=== PATIENT | male | born 1950 | race Caucasian/White ===

== ENCOUNTER 2017-06-13 11:05 | Inpatient (IN) ==
[2017-06-13 11:49] LABS: Basophils % 0.4 %; Eosinophils % 0.4 %; Hematocrit 37.4 % (37.5-50.1); Hemoglobin 11.4 g/dL (12.9-16.9); Immature Granulocytes % 0.6 % (0-4); Lymphocytes # 0.5 K/mcL (0.6-4.6); Lymphocytes % 6.5 %; Mean Corpuscular HGB Conc 30.5 g/dL (31.6-35.5); Mean Corpuscular Hemoglobin 27.5 pg (28.0-33.3); Mean Corpuscular Volume 90.1 fL (83.0-100.0); Mean Platelet Volume 10.4 fL (9.4-12.4); Monocytes # 0.8 K/mcL (0.0-1.3); Monocytes % 10.2 %; Neutrophils # 6.5 K/mcL (1.6-8.9); Platelet Count 113 K/mcL (140-400); Red Blood Count 4.15 M/mcL (4.19-5.50); Red Cell Distribution Width 21.1 % (11.5-14.5); Segmented Neutrophils % 81.9 %
[2017-06-13 11:55] LABS: INR 1.3
[2017-06-13 12:05] LABS: BUN/Creatinine Ratio 19 (6-26); Blood Urea Nitrogen 16 mg/dL (8-26); Calcium 8.9 mg/dL (8.6-10.8); Carbon Dioxide 39 mEq/L (19-29); Chloride 90 mEq/L (98-109); Glucose 189 mg/dL (70-99); Osmolality,Calculated 294 (280-300); Potassium 3.4 mEq/L (3.5-4.5); Sodium 139 mEq/L (136-145); eGFR For African Americans > 60 (> 60); eGFR For Non-African Americans > 60 (> 60)
--- NOTE | 2017-06-13 12:31 | Emergency Department Note ---
Disposition Clinical Impression: Palpitations, Atrial fibrillation, Atrial fibrillation with RVR, Diabetes, CKD (chronic kidney disease) stage 3, GFR 30-59 ml/min Disposition: Admitted As Inpatient Time of Disposition: 16:11 ([facility] Bryce Ric) Arrhythmia/Palpitations HPI - General Chief Complaint: ED Arrhythmia/Palpitations Stated Complaint: chronic afibb Time Seen by Provider: 06/13/17 11:12 Source: patient, EMS Mode of arrival: ambulatory Limitations: no limitations Nursing Notes Reviewed: Yes Vital Signs Reviewed: Yes - History of Present Illness HPI Narrative: Pt was at his family physician's office today when they sent to the emergency room for atrial flutter with RVR patient states that he has been doing this for at least a couple days probably couple weeks she has been having problems for the past month of increasing shortness of breath difficulty breathing he has had lab he has had blood work he denies any blurred vision double vision he thought he denies any syncope he denies any numbness tingling or weakness denies any rashes or lesions he has had changes His called them and actually tells us that he had nosebleed yesterday he has had breathing issues he is not watching his fluid intake this is been going on for more than a month in addition he has not been checking his blood sugar unclear when he may have checked labs and finally that he has not been taking his meds since Friday and thinks this congealing factor to what is going on as result patient's feels that he has been an ongoing issue of not clients which is contributing to the events today Pt Subjective Complaint: palpitations Onset (ago): day(s) (4) Duration: constant Severity: moderate Context: occurred during rest, occurred during exertion Arrhythmia History: atrial fibrillation, on anti-coagulants Associated symptoms: Reports: shortness of breath, near-syncope. Denies: syncope, nausea, vomiting, anxiety, diaphoresis, cough, paresthesias, muscle cramps Treatments prior to arrival: other (has not taken medications) - Related Data Home Medications Medication Instructions Recorded Confirmed Albuterol Neb [Proventil Neb] 2.5 mg IH TID 06/29/15 06/13/17 Albuterol Sulfate [Albuterol 1 - 2 puff IH Q4HR 06/29/15 06/13/17 Inhaler] Aspirin/Calcium Carbonate/Mag 325 mg PO DAILY 06/29/15 06/13/17 [Aspirin Buffered 325 mg Tab] Atorvastatin Calcium [Lipitor] 80 mg PO DAILY 06/29/15 06/13/17 Fluticasone Propionate Nasal 100 mcg NS DAILY 06/29/15 06/13/17 [Flonase] Loratadine [Claritin] 10 mg PO DAILY 06/29/15 06/13/17 Metformin [Glucophage] 1,000 mg PO BID 06/29/15 06/13/17 Montelukast [Singulair] 10 mg PO DAILY 06/29/15 06/13/17 Potassium Chloride 20 meq PO BID 06/29/15 06/13/17 Testosterone Cypionate 100 mg IM Q2W 06/13/17 06/13/17 [Depo-Testosterone] Previous Rx's Medication Instructions Recorded Furosemide [Lasix] 40 mg PO DAILY #30 vial 06/30/15 Metoprolol [Lopressor] 25 mg PO BID #60 tablet 06/30/15 Albuterol Sulfate [Albuterol 2 puff IH QID 2 Days inhaler 07/27/15 Inhaler] Allergies Allergy/AdvReac Type Severity Reaction Status Date / Time No Known Allergies Allergy Verified 05/22/16 15:47 All systems ED: reviewed and negative except as stated. Review of Systems: As Per HPI Constitutional: Reports: weakness. Denies: fever, chills Eyes: Denies: eye pain, eye discharge ENT ED: Denies: ear pain, throat pain Cardiovascular: Reports: palpitations, syncope (near) Respiratory: Reports: dyspnea Gastrointestinal: Denies: abdominal pain, nausea, vomiting Genitourinary: Denies: urgency, dysuria, frequency Musculoskeletal: Denies: back pain, neck pain Integumentary: Denies: rash, abrasion, lesions Neurological: Denies: headache, weakness, abnormal gait Psychiatric: Denies: anxiety, depression Endocrine: Reports: fatigue Hematological/Lymphatic: Denies: easy bleeding Allergic/Immunologic: Denies: facial swelling Past Medical History - Past Medical History Attestation: Yes The following information was validated with the patient. Source: patient, old records reviewed, nursing notes reviewed Medical history: Reports: asthma, atrial fibrillation, CHF, COPD, diabetes, GERD , hyperlipidemia, hypertension Psychiatric history: Reports: no psych history - Social History Smoking Status: Never smoker Smokeless Tobacco Status: No Alcohol use: Reports: none Drug use: Reports: none Physical Exam - General Limitations: no limitations, other (red facial hear and and scalp hair) General appearance: alert, in no apparent distress - Head Head exam: atraumatic, normocephalic, normal inspection - Eye Eye exam: Present: normal appearance, PERRL, EOMI - ENT ENT exam: normal exam, normal oropharynx, mucous membranes moist, normal external ear exam - Neck Neck exam: Present: normal inspection, full ROM, trachea midline - Chest Chest inspection: Present: normal inspection, symmetric chest wall rise - Respiratory Respiratory exam: Present: normal lung sounds bilaterally - Cardiovascular Cardiovascular exam: Present: regular rate, normal rhythm, normal heart sounds - Abdominal Exam Abdominal exam: Present: soft, Non-Tender, normal bowel sounds. Absent: mass, pulsatile mass - Extremities Exam Extremities exam: Present: normal inspection, full ROM, normal capillary refill. Absent: tenderness, pedal edema, joint swelling, calf tenderness - Expanded Lower Extremity Exam Neurovascular/Tendon exam: Present: normal capillary refill, normal fine/light touch Gait: observed and normal - Back Exam Back exam: Present: normal inspection, full ROM. Absent: muscle spasm - Neurological Exam Neurological exam: Present: alert, oriented X3, CN II-XII intact, normal gait - Psychiatric Psychiatric exam: Present: normal affect, normal mood - Skin Skin exam: Present: warm, dry, intact, normal color Course Course Narrative: Patient was seen and examined patient was ordered Cardizem 10 mg because he was intermittently between a controlled rate and up in the 170s initially the Cardizem does not adjust the patient's rhythm then called and told us that he had not been taking his medications given 5 mg of l O Qual and heart rate now is in the 80s no further episodes of tachycardia noted as result of the patient being intermittent rhythm changes concerns are is that this may be metabolic or failure to take his medications as result patient be admitted for observation and serial enzymes will be done to make sure that there is no other etiology or infectious type process associated with the events occurring today that it actually been going on for more than a month with the patient stating he has had symptoms of respiratory issues Admitted to Dr Wu Vital Signs Temperature 98.0 F 06/13/17 11:07 Pulse Rate 106 06/13/17 11:07 Respiratory Rate 24 06/13/17 11:07 Blood Pressure 129/83 06/13/17 11:07 O2 Sat by Pulse Oximetry 97 06/13/17 11:07 Temperature 98.4 F 06/13/17 23:34 Pulse Rate 86 06/13/17 23:34 Respiratory Rate 18 06/13/17 23:34 Blood Pressure 126/77 06/13/17 23:34 O2 Sat by Pulse Oximetry 94 06/13/17 23:34 Oxygen Delivery Oxygen Delivery Nasal Cannula Arrhythmia/Palpitations - Differential Diagnosis Differential Diagnosis: Likely: palpitations, artial arrhythmia, undetermined arrhythmia - Medical Records Medical records reviewed: Yes I reviewed the patient's medical records. - Lab Data Lab results reviewed: Yes I reviewed the patient's lab results. Result diagrams: 06/13/17 11:41 06/13/17 11:41 Lab Results 06/13/17 06/13/17 06/13/17 Range/Units 11:40 11:41 11:41 WBC 8.0 (4.3-11.1) K/mcL RBC 4.15 L (4.19-5.50) M/mcL Hgb 11.4 L (12.9-16.9) g/dL Hct 37.4 L (37.5-50.1) % MCV 90.1 (83.0-100.0) fL MCH 27.5 L (28.0-33.3) pg MCHC 30.5 L (31.6-35.5) g/dL RDW 21.1 H (11.5-14.5) % Plt Count 113 L (140-400) K/mcL MPV 10.4 (9.4-12.4) fL Immature Gran % 0.6 (0-4) % Seg Neutrophils % 81.9 % Lymphocytes % 6.5 % Monocytes % 10.2 % Eosinophils % 0.4 % Basophils % 0.4 % Neutrophils # 6.5 (1.6-8.9) K/mcL Lymphocytes # 0.5 L (0.6-4.6) K/mcL Monocytes # 0.8 (0.0-1.3) K/mcL Eosinophils # 0.0 (0.0-0.6) K/mcL Basophils # 0.0 (0.0-0.2) K/mcL PT 14.0 H (9.4-12.1) Seconds INR 1.3 APTT 31.0 (26.0-36.0) Seconds Sodium (136-145) mEq/L Potassium (3.5-4.5) mEq/L Chloride (98-109) mEq/L Carbon Dioxide (19-29) mEq/L BUN (8-26) mg/dL Creatinine (0.72-1.25) mg/dL Est GFR ( Amer) (> 60) Est GFR (Non-Af Amer) (> 60) BUN/Creatinine Ratio (6-26) Glucose (70-99) mg/dL Calculated Osmolality (280-300) Calcium (8.6-10.8) mg/dL Troponin I (0-0.03) ng/mL B-Natriuretic Peptide 118 H (0-100) pg/mL 06/13/17 06/13/17 Range/Units 11:41 11:41 WBC (4.3-11.1) K/mcL RBC (4.19-5.50) M/mcL Hgb (12.9-16.9) g/dL Hct (37.5-50.1) % MCV (83.0-100.0) fL MCH (28.0-33.3) pg MCHC (31.6-35.5) g/dL RDW (11.5-14.5) % Plt Count (140-400) K/mcL MPV (9.4-12.4) fL Immature Gran % (0-4) % Seg Neutrophils % % Lymphocytes % % Monocytes % % Eosinophils % % Basophils % % Neutrophils # (1.6-8.9) K/mcL Lymphocytes # (0.6-4.6) K/mcL Monocytes # (0.0-1.3) K/mcL Eosinophils # (0.0-0.6) K/mcL Basophils # (0.0-0.2) K/mcL PT (9.4-12.1) Seconds INR APTT (26.0-36.0) Seconds Sodium 139 (136-145) mEq/L Potassium 3.4 L (3.5-4.5) mEq/L Chloride 90 L (98-109) mEq/L Carbon Dioxide 39 H (19-29) mEq/L BUN 16 (8-26) mg/dL Creatinine 0.86 (0.72-1.25) mg/dL Est GFR ( Amer) > 60 (> 60) Est GFR (Non-Af Amer) > 60 (> 60) BUN/Creatinine Ratio 19 (6-26) Glucose 189 H (70-99) mg/dL Calculated Osmolality 294 (280-300) Calcium 8.9 (8.6-10.8) mg/dL Troponin I 0.02 (0-0.03) ng/mL B-Natriuretic Peptide (0-100) pg/mL - Radiology Data Radiology results reviewed: Yes I reviewed the patient's radiology results. ITS Impressions Chest CT 06/13/17 12:29 IMPRESSION: 1. New small left-sided pleural effusion of unclear etiology. 2. Dilated main pulmonary artery as on the previous exam compatible with pulmonary arterial hypertension. 3. Prominent atelectatic changes in both lungs noted. D/ / Hector Castellanos MD / Hector Castellanos MD Interpreting Provider: Hector Castellanos MD - EKG Data EKG attestation: Yes I reviewed and interpreted this EKG. EKG results narrative: H repaired with RVR or bundle-branch block rate 104 curiousness 160 QT [address] segment elevation noted Critical Care Time Critical Care Time: Yes Total Critical Care Time: 15 Attestation: Critical care performed:15 min due to patient having atrial fib with RVR patient symptomatic with this feeling palpitations feeling so he may pass out but denies any chest pain or chest pressure associated with these events he denied there being noncompliant with his medication and his is very adamant that this is occurred taking time discussed with family patient and attending physician for admission Medications resolved Atrial fib with RVR to controlled in the er Time is exclusive of separately billable procedures. Time includes: direct patient care, patient reassessment, coordination of patient care, interpretation of data (laboratory data, radiology data, and respiratory data), review of patient's medical records, medical consultation and documentation of patient care. Procedures included in critical care time: Procedures excluded from critical care time:
[2017-06-13] MEDS ORDERED: *HR* Metoprolol 5 MG/5 ML VIAL IVP ONE (13:15)
[2017-06-13] MEDS ORDERED: D5% in Water 1,000 ML IVC PRN (16:42)
[2017-06-13] MEDS ORDERED: NON-FORMULARY MEDICATION 1 EACH EACH (Testosterone Cypionate [Depo-Testosterone] 100 MG) IM SCH (16:42)
[2017-06-13] MEDS ORDERED: Naloxone 0.4 MG/ML INJ IVP PRN (16:42)
[2017-06-13] MEDS ORDERED: Furosemide 40 MG/4 ML VIAL IVP ONE (16:42)
[2017-06-13] MEDS ORDERED: *HR* Dextrose 50 % in Water (Syg) 50 ML SYRINGE IVP PRN (16:42)
[2017-06-13] MEDS ORDERED: Dextrose Gel 15 GM PO PRN ×2 (16:42)
[2017-06-13] MEDS: Insulin LISPRO 300 UNITS/3 ML VIAL SQ SCH (18:21)
[2017-06-13] MEDS: *HR* Metformin 500 MG TABLET PO SCH (18:23)
--- NOTE | 2017-06-13 18:34 | Electrocardiograph Report ---
[address] [place], [place] [address] Test Date: 2017-06-13 Pat Name: Mark Gtz Department: [id number] Room: [facility] Gender: M [employer]ict[employer] Typist: Mendel : 1950 Requested By: Zo Saavedra Order Number: [id number] Reading MD: Himanshu Garcia MD Measurements Intervals [place] Rate: 104 P: [place]: 0 QRS: 55 QRSD: 160 T: 29 QT: 323 QTc: 384 Interpretive Statements SINUS RHYTHM W PACS INDETERMINATE AXIS RIGHT BUNDLE BRANCH BLOCK Electronically Signed On 06-13-2017 18:32:44 EST by Himanshu Garcia MD
[2017-06-14 05:43] LABS: Basophils % 0.4 %; Eosinophils # 0.1 K/mcL (0.0-0.6); Eosinophils % 1.2 %; Hematocrit 36.7 % (37.5-50.1); Immature Granulocytes % 0.7 % (0-4); Lymphocytes # 0.9 K/mcL (0.6-4.6); Lymphocytes % 10.1 %; Mean Corpuscular Volume 90.2 fL (83.0-100.0); Mean Platelet Volume 12.4 fL (9.4-12.4); Monocytes # 1.1 K/mcL (0.0-1.3); Monocytes % 11.7 %; Neutrophils # 6.9 K/mcL (1.6-8.9); Platelet Count 135 K/mcL (140-400); Red Blood Count 4.07 M/mcL (4.19-5.50); Red Cell Distribution Width 21.4 % (11.5-14.5); Segmented Neutrophils % 75.9 %
[2017-06-14 06:00] LABS: BUN/Creatinine Ratio 20 (6-26); Blood Urea Nitrogen 19 mg/dL (8-26); Chloride 92 mEq/L (98-109); Glucose 130 mg/dL (70-99); Osmolality,Calculated 298 (280-300); Potassium 3.5 mEq/L (3.5-4.5); Sodium 142 mEq/L (136-145); eGFR For African Americans > 60 (> 60); eGFR For Non-African Americans > 60 (> 60)
[2017-06-14 06:21] LABS: INR 1.3; Prothrombin Time 13.7 Seconds (9.4-12.1)
[2017-06-14 06:23] LABS: Hypochromasia Present (Not Present)
[2017-06-14 06:24] LABS: Anisocytosis 1+ (Not Present)
[2017-06-14 06:32] LABS: Carbon Dioxide 40 mEq/L (19-29)
[2017-06-14] MEDS: Loratadine 10 MG TABLET PO SCH (09:05)
[2017-06-14] MEDS: Aspirin Enteric Coated 325 MG Tablet PO SCH (09:05)
[2017-06-14] MEDS: *HR* Metformin 500 MG TABLET PO SCH ×2 (09:05→17:05)
[2017-06-14] MEDS: Fluticasone Propionate Nasal 50 MCG/SPRAY BOTTLE NS SCH (09:05)
[2017-06-14] MEDS: Insulin LISPRO 300 UNITS/3 ML VIAL SQ SCH ×3 (11:30→16:55)
--- NOTE | 2017-06-14 15:34 | Internal Med History&Physical ---
Date of Encounter: 06/14/17 Time of Encounter: 14:55 Assessment and Plan (1) Atrial fibrillation with RVR Current visit: Yes Status: Acute His rate has slowed to an acceptable level. Continue present dose metoprolol. (2) Anemia Current visit: No Status: Chronic We will order anemia testing in a.m. Qualifiers: Anemia type: unspecified type Qualified Code(s): D64.9 - Anemia, unspecified (3) DM type 2 (diabetes mellitus, type 2) Current visit: Yes Status: Acute Hemoglobin A1c was 6.8% on 06/08/2017. Continue metformin and do Accu-Cheks with SSI. Qualifiers: Diabetes mellitus complication status: with kidney complications Diabetes mellitus complication detail: with chronic kidney disease Diabetes mellitus care home insulin use: without set decorator use Chronic kidney disease stage: stage 2 (mild) Qualified Code(s): E11.22 - Type 2 diabetes mellitus with diabetic chronic kidney disease; N18.2 - Chronic kidney disease, stage 2 (mild) ; N18.2 - Chronic kidney disease, stage 2 (mild) Internal Medicine - H&P: HPI Chief complaint: AF with RVR Admitted From: Home Plans for Post Hospital Care: Home History of present illness: Mr. Gtz is a 66 year old male who was sent to emergency room from his PCP office after he presented with AF with RVR. He states he has had increased dyspnea over the past 2 months and chronic atrial fibrillation present for several years. He denies cough or chest pain. He was evaluated in emergency room and admitted to [facility] floor for ongoing care needs. He states he does not use OAC for atrial fibrillation because of history of nosebleeds on Coumadin. He takes an aspirin daily. He denies SC or hypertension. He had an echocardiogram 02/27/2017 which showed LVEF of 60-65% with reported moderate LV diastolic dysfunction. There was mild TR and mild pulmonary hypertension. He denies DVT or pulmonary emboli. 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 Past Med Surg Social Fam HX - Past Medical History Medical history: asthma, atrial fibrillation, CHF, COPD, diabetes, GERD, hyperlipidemia, hypertension Psychiatric history: no psych history - Social History Smoking Status: Never smoker Smokeless Tobacco Status: No Alcohol use: none Drug use: none - Family History Mother Living Status: Hx Family Endocrine Disorder: Yes (DM) Internal Medicine - H&P: Meds Albuterol Neb [Proventil Neb] 2.5 mg IH TID 06/29/15 [History] Albuterol Sulfate [Albuterol Inhaler] 1 - 2 puff IH Q4HR 06/29/15 [History] Aspirin/Calcium Carbonate/Mag [Aspirin Buffered 325 mg Tab] 325 mg PO DAILY 10/09 [History] Atorvastatin Calcium [Lipitor] 80 mg PO DAILY 06/29/15 [History] Fluticasone Propionate Nasal [Flonase] 100 mcg NS DAILY 06/29/15 [History] Loratadine [Claritin] 10 mg PO DAILY 06/29/15 [History] Metformin [Glucophage] 1,000 mg PO BID 06/29/15 [History] Montelukast [Singulair] 10 mg PO DAILY 06/29/15 [History] Potassium Chloride 20 meq PO BID 06/29/15 [History] Furosemide [Lasix] 40 mg PO DAILY #30 vial 06/30/15 [Rx] Metoprolol [Lopressor] 25 mg PO BID #60 tablet 06/30/15 [Rx] Albuterol Sulfate [Albuterol Inhaler] 2 puff IH QID 2 Days inhaler 07/27/15 [Rx ] Testosterone Cypionate [Depo-Testosterone] 100 mg IM Q2W 06/13/17 [History] 3 Allergy/AdvReac Type Severity Reaction Status Date / Time No Known Allergies Allergy Verified 05/22/16 15:47 All Systems PM: A 10-system review of systems was performed and is negative for pertinent findings except as documented above in the HPI. Review of systems: Gen.: He states his weight has been stable past few months Cardiovascular: As per history of present illness Respiratory: He is a lifelong nonsmoker. He had pulmonary function testing done 07/06/2014 which showed FVC of 49% predicted consistent with moderate to severe restrictive lung disease. 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 DLCO was 53% predicted. He uses oxygen at home essentially 24/7 while in the house. He has been diagnosed with KLAUDIA but has not been prescribed CPAP/BiPAP yet. GI: He denies disorders of his liver gallbladder or exocrine pancreas : He denies hematuria dysuria or kidney stones Neurologic: He denies large distribution strokes or seizures. Endocrine: He was diagnosed with DM 2 approximately 2014. He has hypogonadism and is on replacement testosterone therapy. He denies thyroid disease or hyperlipidemia Hematology/oncology: He was unaware he was anemic in the emergency room. He denies history of internal malignancies Psychiatric: He denies anxiety depression other mental health issues Musk skeletal: He denies arthritis gout other bone joint or muscle disorders. - Constitutional Vitals: Temp Pulse Resp BP Pulse Ox 98.1 F 89 17 128/62 94 06/14/17 11:25 06/14/17 11:25 06/14/17 11:25 06/14/17 11:25 06/14/17 11:25 Exam: Gen.: He is a well-developed overweight male sitting in a chair in his room who appears in no acute distress HEENT: Head is atraumatic and normocephalic. Eyes: EOMI. There is no scleral icterus. Mouth: Mucosa is moist. Neck: Supple and nontender. There is no thyromegaly or adenopathy noted. Heart: Regularly irregular without murmurs or gallops Lungs: No wheezes or crackles are heard. Abdomen: His abdomen is firm but nontender. Exam is limited because he is in the seated position. Extremities: There is no cyanosis edema or clubbing noted. Dorsalis pedis and posttibial pulses are trace palpable bilaterally. Neurologic: Mental status: He is talkative and a good historian. Cranial nerves : Smile was symmetric. Forehead wrinkles bilaterally. Tongue protrudes midline. EOMI. Motor: There is no pronator drift. Cerebellar: Clear to nose is intact bilaterally. Skin: Warm and dry Internal Med - H&P Results - Labs CBC & Chem 7: 06/14/17 04:41 06/14/17 04:41 Labs: Short CBC 06/14/17 Range/Units 04:41 WBC 9.0 (4.3-11.1) K/mcL Hgb 11.0 L (12.9-16.9) g/dL Hct 36.7 L (37.5-50.1) % Plt Count 135 L (140-400) K/mcL Neutrophils # 6.9 (1.6-8.9) K/mcL BMP 06/14/17 04:41 Sodium 142 Potassium 3.5 Chloride 92 L Carbon Dioxide 40 H* BUN 19 Creatinine 0.94 Glucose 130 H Calcium 9.0 Cardiac Enzymes 06/13/17 06/14/17 Range/Units 19:06 00:23 Troponin I 0.02 0.03 (0-0.03) ng/mL
[2017-06-14 20:34] LABS: % Iron Saturation 7 % (20-55); Iron 31 mcg/dL (65-175); Transferrin 330 mg/dL (174-364)
[2017-06-14 20:49] LABS: Ferritin 21 ng/ml (22-275)
[2017-06-14 21:09] LABS: Folate 8.5 ng/mL (7.0-31.4)
[2017-06-15] MEDS ORDERED: *HR* Enoxaparin 40 MG/0.4 ML SYRINGE SQ SCH (06:00)
[2017-06-15 06:30] LABS: Basophils % 0.3 %; Eosinophils # 0.1 K/mcL (0.0-0.6); Eosinophils % 1.6 %; Immature Granulocytes % 0.6 % (0-4); Lymphocytes # 0.8 K/mcL (0.6-4.6); Lymphocytes % 8.9 %; Mean Corpuscular HGB Conc 29.7 g/dL (31.6-35.5); Mean Corpuscular Hemoglobin 27.1 pg (28.0-33.3); Mean Corpuscular Volume 91.1 fL (83.0-100.0); Mean Platelet Volume 12.2 fL (9.4-12.4); Monocytes # 1.1 K/mcL (0.0-1.3); Monocytes % 12.5 %; Neutrophils # 6.8 K/mcL (1.6-8.9); Nucleated Red Blood Cells 0.2 /100 WBC (0); Platelet Count 120 K/mcL (140-400); Red Blood Count 4.06 M/mcL (4.19-5.50); Red Cell Distribution Width 21.5 % (11.5-14.5); Segmented Neutrophils % 76.1 %
[2017-06-15 06:51] LABS: BUN/Creatinine Ratio 27 (6-26); Blood Urea Nitrogen 23 mg/dL (8-26); Calcium 9.2 mg/dL (8.6-10.8); Chloride 95 mEq/L (98-109); Glucose 148 mg/dL (70-99); Osmolality,Calculated 300 (280-300); Potassium 3.9 mEq/L (3.5-4.5); Sodium 142 mEq/L (136-145); eGFR For African Americans > 60 (> 60); eGFR For Non-African Americans > 60 (> 60)
[2017-06-15 06:58] LABS: Carbon Dioxide 40 mEq/L (19-29)
[2017-06-15 07:10] LABS: Anisocytosis 2+ (Not Present); Basophilic Stippling 1+ (Not Present); Poikilocytosis 1+ (Not Present); Polychromasia 1+ (Not Present)
[2017-06-15 07:12] LABS: Platelet Estimate Slight Decrease (Normal)
[2017-06-15 07:13] LABS: Hypochromasia Present (Not Present)
[2017-06-15 07:18] VITALS: BP 122/81
[2017-06-15] MEDS: Aspirin Enteric Coated 325 MG Tablet PO SCH (09:22)
[2017-06-15] MEDS: *HR* Metformin 500 MG TABLET PO SCH (09:22)
[2017-06-15] MEDS: Loratadine 10 MG TABLET PO SCH (09:23)
[2017-06-15] MEDS: Fluticasone Propionate Nasal 50 MCG/SPRAY BOTTLE NS SCH (09:25)
[2017-06-15] MEDS: Insulin LISPRO 300 UNITS/3 ML VIAL SQ SCH (09:26)
--- NOTE | 2017-06-15 09:38 | Discharge Summary ---
Date of Encounter: 06/15/17 Time of Encounter: 09:25 - Discharge Diagnosis (1) Atrial fibrillation with RVR Priority: Primary Status: Acute (2) Anemia Priority: Secondary Status: Chronic Qualifiers: Anemia type: iron deficiency Iron deficiency anemia type: unspecified iron deficiency Qualified Code(s): D50.9 - Iron deficiency anemia, unspecified (3) DM type 2 (diabetes mellitus, type 2) Priority: Secondary Status: Acute Qualifiers: Diabetes mellitus complication status: with kidney complications Diabetes mellitus complication detail: with chronic kidney disease Diabetes mellitus longterm insulin use: without longterm use Chronic kidney disease stage: stage 2 (mild) Qualified Code(s): E11.22 - Type 2 diabetes mellitus with diabetic chronic kidney disease; N18.2 - Chronic kidney disease, stage 2 (mild) ; N18.2 - Chronic kidney disease, stage 2 (mild) - Discharge Medications Prescriptions: Ascorbate Calcium [Vitamin C] 500 mg PO DAILY #30 tablet Ferrous Sulfate 325 mg PO DAILY #30 tablet Home Medications: Albuterol Neb [Proventil Neb] 2.5 mg IH TID 06/29/15 [History] Albuterol Sulfate [Albuterol Inhaler] 1 - 2 puff IH Q4HR 06/29/15 [History] Aspirin/Calcium Carbonate/Mag [Aspirin Buffered 325 mg Tab] 325 mg PO DAILY 10/09 [History] Atorvastatin Calcium [Lipitor] 80 mg PO DAILY 06/29/15 [History] Fluticasone Propionate Nasal [Flonase] 100 mcg NS DAILY 06/29/15 [History] Loratadine [Claritin] 10 mg PO DAILY 06/29/15 [History] Metformin [Glucophage] 1,000 mg PO BID 06/29/15 [History] Montelukast [Singulair] 10 mg PO DAILY 06/29/15 [History] Potassium Chloride 20 meq PO BID 06/29/15 [History] Furosemide [Lasix] 40 mg PO DAILY #30 vial 06/30/15 [Rx] Metoprolol [Lopressor] 25 mg PO BID #60 tablet 06/30/15 [Rx] Albuterol Sulfate [Albuterol Inhaler] 2 puff IH QID 2 Days inhaler 07/27/15 [Rx ] Testosterone Cypionate [Depo-Testosterone] 100 mg IM Q2W 06/13/17 [History] Ascorbate Calcium [Vitamin C] 500 mg PO DAILY #30 tablet 06/15/17 [Rx] Ferrous Sulfate 325 mg PO DAILY #30 tablet 06/15/17 [Rx] Allergies/Adverse Reactions: 3 Allergy/AdvReac Type Severity Reaction Status Date / Time No Known Allergies Allergy Verified 05/22/16 15:47 Date of admission: 06/14/17 16:45 Primary care physician: Rosa M Brown - Patient Status Disposition: Home, Self-Care Overall status at discharge: patient is progressing back to baseline - Discharge Instructions Follow Up With: Rosa M Brown MD [Primary Care Provider] - 1 week - Diet and Activity Activity: resume usual activities as tolerated, wear oxygen at all times Diet: diabetic diet Hospital course: Mr. Gtz is a 66 year old male who was sent to emergency room from his PCP office after he presented with AF with RVR. He states he has had increased dyspnea over the past 2 months and chronic atrial fibrillation present for several years. He denies cough or chest pain. He was evaluated in emergency room and admitted to [facility] for ongoing care needs. Initial orders were written by the emergency room physician. I saw him on June 14 and performed a history and physical. He was continued on metoprolol and given IV fluids initially. His heart rate slowed to an acceptable level. He will remain on his usual home medication regimen at discharge. Anemia testing showed iron 31, transferrin saturation 7%, transferrin 3 and 30, ferritin 21, B12 409, and folate 8.5. He will be prescribed vitamin C with ferrous sulfate at discharge. His potassium level normalized to 3.9 by day of discharge. PCP can monitor labs to ensure stability. On June 15 he felt improved and stable for discharge home. He will follow with his PCP Dr. Brown within 1 week. - Time Spent with Patient Total time spent providing and/or coordinating discharge services: - Constitutional Vitals: Temp Pulse Resp BP Pulse Ox 97.8 F 86 18 122/81 98 06/15/17 07:17 06/15/17 07:17 06/15/17 07:17 06/15/17 07:17 06/15/17 07:17
[2017-06-15] MEDS ORDERED: FLUARIX QUAD 2017-18 36MOS UP/PF 0.5 ML SYRINGE IM ONE (10:03)
== END 2017-06-15 13:35 | disposition home or self-care (01) | DRG 309 ==
LOC: INPPIK 11:05 → EMEROOPIK 11:05 → INPPIK 16:48
PROVIDERS: ADMIT Internal Medicine; ATTEND Internal Medicine